=== PATIENT | male | born 1950 | race Caucasian/White ===

== ENCOUNTER 2017-03-04 14:26 | Emergency (ER) | payer MEDICARE | END 2017-03-04 15:29 | disposition home or self-care (01) | LOC: ER1 14:26 | DX: S60.450A Superficial foreign body of right index finger, initial encounter (principal); I10 Essential (primary) hypertension; F17.210 Nicotine dependence, cigarettes, uncomplicated; W45.8XXA Other foreign body or object entering through skin, initial encounter; Y92.828 Other wilderness area as the place of occurrence of the external cause; Z88.5 Allergy status to narcotic agent | CPT/HCPCS: 90471; 90714; 99283 ==